=== PATIENT | female | born 1995 | race African-American/Black ===

== ENCOUNTER 2022-01-15 17:32 | Emergency (ER) | payer OTHER ==
[~2022-01-15] VITALS: Ht 152.4 cm; Wt 68.0 kg
[2022-01-15 19:41] LABS: PLATELET COUNT 338 K/uL (152-353)
[2022-01-15 19:46] LABS: POTASSIUM 3.5 mmol/L (3.6-5.2); SODIUM 139 mmol/L (136-145)
[2022-01-15] MEDS ORDERED: ONDA4TAB3 PO (22:56)
[2022-01-15] MEDS ORDERED: PANTOPRAZOLE 40MG TA PO (22:56)
[2022-01-15 23:07] VITALS: BP 110/66; TEMP 98.2
== END 2022-01-15 23:07 | disposition home or self-care (01) ==
LOC: ED 17:32
PROVIDERS: Emergency Medicine
DX: R07.89 Other chest pain (principal); K29.60 Other gastritis without bleeding
CPT/HCPCS: 80053; 81000; 81025; 84484; 85027; 85610; 93005; 96360; 96361; 96374; 96375; 96376; 99284; J2270; J2405; J3490

== ENCOUNTER 2022-01-18 16:16 | Emergency (ER) | payer OTHER ==
[~2022-01-18] VITALS: Ht 152.4 cm; Wt 68.0 kg
[2022-01-18 16:16] VITALS: TEMP 98
[~2022-01-18 16:16] MED LIST: ONDA4TAB3 PO; PANTOPRAZOLE 40MG TA PO
[2022-01-18 16:45] LABS: PLATELET COUNT 327 K/uL (152-353)
[2022-01-18 16:52] LABS: POTASSIUM 3.6 mmol/L (3.6-5.2)
[2022-01-18 19:02] VITALS: BP 106/58
== END 2022-01-18 19:04 | disposition home or self-care (01) ==
LOC: ED 16:16
PROVIDERS: Hospitalist
DX: R10.11 Right upper quadrant pain (principal); R11.2 Nausea with vomiting, unspecified
CPT/HCPCS: 36415; 80053; 80320; 81000; 83690; 84484; 85027; 93005; 96360; 96365; 96375; 99284; J1170; J1885; J2405; J2543; Q9963